=== PATIENT | male | born 1970 | race Caucasian/White ===

== ENCOUNTER 2022-03-25 13:34 | Emergency (ER) | payer SELFPAY ==
[2022-03-25 13:35] VITALS: BP 168/104; PULSE 105; RESP 16; TEMP 36.1; O2SAT 98; BMI 29.8
[2022-03-25 13:53] LABS: Bacteria 0 SEEN /hpf (None Seen); Mucous, Urine 0 SEEN /hpf (<or=2+); Red Blood Cells-Urine 0 SEEN /hpf (0-5)
[2022-03-25 13:55] LABS: Color, Urine Yellow (Yellow); Glucose, Dipstick Normal (Normal); Ketone-Dipstick 15 mg/dl (Negative); Leukocyte Esterase-Dipstick 25 /ul (Negative); Nitrite-Dipstick Negative (Negative); Occult Blood-Urine Negative /ul (Negative); Protein-Dipstick 30 mg/dl (Negative); Urine Bilirubin Dipstick Negative (Negative); Urine Clarity Sl. Cloudy (Clear); Urine Urobilinogen Normal (Normal)
[2022-03-25 13:59] LABS: Absolute Lymphocyte Count 1.65 X10^3/uL (0.83-4.51); Absolute Neutrophil Count 5.9 X10^3/uL (2.0-7.7); Basophil# 0.07 X10^3/uL; Basophil% 0.8 % (0-1); Eosinophil# 0.69 X10^3/uL; Eosinophils% 7.7 % (0-5); Hemoglobin 15.8 g/dL (13.0-16.5); Lymphocyte # 1.65 X10^3/ul (0.83-4.51); Lymphocyte % 18.5 % (19-41); Mean Corp Hgb Conc 33.6 g/dL (32-36); Mean Corpuscular Hgb 28.6 pg (27.0-32.0); Mean Corpuscular Volume 85.1 fL (80-94); Mean Platelet Vol. 9.9 fl (6.2-12.0); Monocyte# 0.63 X10^3/uL; NRBC Flagged by Analyzer 0 % (0-5); Neutrophil # 5.87 X10^3/uL (2.7-7.7); Neutrophil % 65.7 % (47-70); Platelet Count 306 K/mm3 (150-450); RBC Distribution Width CV 13.7 % (11.6-14.6); Red Blood Count 5.52 M/mm3 (4.6-6.2); White Blood Count 8.9 K/mm3 (4.4-11.0)
[2022-03-25 14:04] LABS: Squamous Epithelial Cells - UA 0-5 SEEN /hpf (0-5); White Blood Cells 0-5 SEEN /hpf (0-5)
[2022-03-25 14:09] LABS: Anion Gap 6 (5-15); BUN 11 mg/dL (7-18); BUN/Creat Ratio 8.7 RATIO (10-20); Calcium,Total 9.5 mg/dL (8.5-10.1); Chloride 108 mmol/L (98-107); Creatinine, Serum 1.26 mg/dL (0.70-1.30); EST Glomerular Filtration Rate 63 mL/min (>60); Est Glom Filt Rate - Afr Amer 77 mL/min (>60); Estimated Creatinine Clearance 70.01 ml/min; Glucose 114 mg/dL (74-106); Potassium 3.6 mmol/L (3.5-5.1); Sodium Level 140 mmol/L (136-145)
[2022-03-25 16:18] VITALS: PULSE 97; RESP 17; O2SAT 96
--- NOTE | 2022-03-25 16:24 | CT_ITS ---
EXAM: CT ABDOMEN AND PELVIS WITH INTRAVENOUS CONTRAST CLINICAL INDICATION: RLQ pain TECHNIQUE: Helically acquired images were obtained of the abdomen and pelvis with intravenous contrast. This CT exam was performed using one or more of the following dose reduction techniques: automated exposure control, adjustment of the mA and/or kV according to patient size, and/or use of iterative reconstruction technique. This report was created using [employer] report generation technology. CONTRAST: IV 100mL Isovue-370 COMPARISON: None. FINDINGS: LOWER THORAX: Unremarkable. Lung bases are clear. No cardiomegaly. No significant pericardial effusion. ABDOMEN: LIVER: Unremarkable. Homogeneous. No focal mass. GALLBLADDER AND BILE DUCTS: Single gallstones present with no inflammation. No gallbladder distention or wall edema. No intra- or extrahepatic biliary ductal dilation. PANCREAS: Unremarkable. No focal cystic or solid mass. SPLEEN: Unremarkable. Normal size without focal cystic or solid mass. ADRENALS: Unremarkable. No nodules. KIDNEYS AND URETERS: Unremarkable. Normal renal size and position. No hydronephrosis. STOMACH AND BOWEL: Unremarkable. No stomach or bowel distention. No focal inflammatory change. PELVIS: APPENDIX: No evidence of acute appendicitis. BLADDER: Unremarkable. REPRODUCTIVE: Unremarkable as visualized. No mass. ABDOMEN and PELVIS: INTRAPERITONEAL SPACE: Unremarkable. No ascites or other fluid collection. No free air. BONES/JOINTS: Unremarkable. No suspicious lytic or blastic abnormality. SOFT TISSUES: Unremarkable. No discrete abdominal or pelvic wall hernia. VASCULATURE: Unremarkable. Abdominal aorta is non-dilated. LYMPH NODES: Unremarkable. No enlarged lymph nodes. CT/Abdomen/Pelvis W IV Cont ONLY IMPRESSION: Cholelithiasis with no evidence of cholecystitis. No other abnormalities identified. Electronically Signed: Connor Pierre MD at 17:17 EDT ,
[2022-03-25] MEDS: 0.9% Normal Saline 1,000 ML 999 ML IV (16:42)
--- NOTE | 2022-03-25 16:52 | ED.VIS.GI ---
HPI HPI - GI History of Present Illness Chief Complaint: Abd Pain Informant: patient Abdominal Pain/Flank Pain Onset: Days (several) Context: Gradual Onset Timing: Continuous Quality: Aching Location: RLQ Current Severity: Moderate Maximum Severity: Moderate Worsened by: Nothing Relieved by: - (Ibuprofen that he took prior to coming here) Nausea/Vomiting/Emesis GI Symptom: Negative for Nausea or Vomiting Diarrhea/Melena/Hematochezia GI Symptom: Negative for Diarrhea, Melena or Hematochezia Associated Symptoms Associated Symptoms: Positive for - (poor appetite today); Negative for Dysuria, Frequency, Hematuria or Urgency Narrative Narrative: Patient presenting with right lower quadrant abdominal pain that has been mild last couple days but today it was noticeably worse and affected his appetite. No radiation of the pain. No urinary symptoms but he is urinating less today because he has not been drinking very much. No fevers or chills. No history of any abdominal surgeries. He takes no medications for any medical problems. PFSH PFSH Medical History no medical history no medical history Home Medications NK 03/25/22 [History Last Taken Unknown] Allergy/AdvReac Type Severity Reaction Status Date / Time No Known Allergies Allergy Verified 03/25/22 13:35 Surgical History no surgical history no surgical history Social History Smoking Status: Former smoker ROS ROS ED Constitutional Constitutional ED: Reports anorexia; Denies chills or fever(s) Eyes Eyes: Denies change in vision or diplopia ENT ENT ED: Reports nasal congestion; Denies rhinorrhea or sore throat Cardiovascular Cardiovascular: Denies chest pain or palpitations Respiratory/Chest Respiratory/Chest: Reports cough; Denies dyspnea Gastrointestinal Gastrointestinal: Reports abdominal pain; Denies diarrhea, nausea or vomiting Genitourinary Genitourinary ED: Denies dysuria or hematuria Musculoskeletal Musculoskeletal: Denies back pain or neck pain Integumentary Denies abscess or rash Neurologic Neurologic: Denies headache(s), paresthesias or weakness Psychiatric Psychiatric: Denies anxiety or suicidal thoughts EXAM Physical Exam Const Vital Signs: 03/25/22 13:35 03/25/22 16:18 Temperature 96.9 F L Temperature Source Temporal Pulse Rate 105 H 97 Respiratory Rate 16 17 Blood Pressure 168/104 H Blood Pressure Mean 125 Pulse Ox 98 96 Oxygen Delivery Method Room Air Room Air Positive well nourished and well developed General Appearance ED: well developed and NAD HEENT Reports moist mucous membranes normocephalic and atraumatic Eyes PERRL and EOMs intact bilaterally Neck full ROM and supple Resp normal respiratory effort and clear to auscultation bilaterally Cardio regular rate, regular rhythm and no murmurs GI non-distended GI Narrative: Tender in and around McBurney's point right lower quadrant, no other areas of abdominal tenderness. Negative Oseguera, Rovsing, psoas, obturator signs. No guarding or rebound tenderness. Auscultation: normoactive bowel sounds Palpation: soft Back/Spine no CVA tenderness General Back: other FROM Extremity normal to inspection General Extremety ED: Negative for edema, pulses abnormal or tenderness General Extremity: Negative for edema or pulses abnormal Neuro oriented x3, CN's II-XII intact bilaterally and no sensory deficits noted Sensorium / Orientation: awake and alert Motor Exam: strength 5/5 throughout Psych mental status grossly normal and thought process normal Skin no rashes or lesions noted and no wounds MDM MDM MDM Narrative Medical decision making narrative: Work-up is only remarkable for gallstones, without any signs of cholecystitis. He is nontender here even on reevaluation. Appendix normal, no signs of appendicitis which is what I was more concerned about with his exam. When I went to reevaluate him he discussed the fact that he has cough and congestion for the last 4 or 5 days. Has not been tested for COVID, so subsequently we ran that test which delayed his visit here in the ED but he was amenable to that. It was negative. Patient is reassured and discharged home advised to use [id number] anti-inflammatories as needed for his pain. I do not think gallstones are causing this pain. Patient was discharged with referral to the next doctor on the unassigned list, Dr. Young. He states he does not have a doctor. Lab Data Attestation: I reviewed the patient's lab results. Labs: Laboratory Results - last 24 hr 03/25/22 03/25/22 03/25/22 13:40 13:45 13:45 WBC 8.9 RBC 5.52 Hgb 15.8 Hct 47.0 MCV 85.1 MCH 28.6 MCHC 33.6 RDW Std Deviation 43.0 RDW Coeff of Daryn 13.7 Plt Count 306 MPV 9.9 Immature Gran % (Auto) 0.300 Neut % (Auto) 65.7 Lymph % (Auto) 18.5 L Grainger % (Auto) 7.0 Eos % (Auto) 7.7 H Baso % (Auto) 0.8 Absolute Neuts (auto) 5.9 Absolute Lymphs (auto) 1.65 Nucleated RBC % 0 Sodium 140 Potassium 3.6 Chloride 108 H Carbon Dioxide 26.0 Anion Gap 6 BUN 11 Creatinine 1.26 Estim Creat Clear Calc 70.01 Est GFR (MDRD) Af Amer 77 Est GFR (MDRD) Non-Af 63 BUN/Creatinine Ratio 8.7 L Glucose 114 H Calcium 9.5 Urine Color Yellow Urine Clarity Sl. Cloudy Urine pH 5.0 Ur Specific [place] 1.020 Urine Protein 30 H Urine Glucose (UA) Normal Urine Ketones 15 H Urine Occult Blood Negative Urine Nitrite Negative Urine Bilirubin Negative Urine Urobilinogen Normal Ur Leukocyte Esterase 25 H Urine RBC 0 SEEN Urine WBC 0-5 SEEN Ur Squamous Epith Cells 0-5 SEEN Urine Bacteria 0 SEEN Urine Mucus 0 SEEN Radiography Diagnostic Testing: Clinical Impression(s) from Imaging Studies Abdomen/Pelvis CT 03/25/22 16:24 IMPRESSION: Cholelithiasis with no evidence of cholecystitis. No other abnormalities identified. Electronically Signed: Connor Pierre MD at 17:17 EDT , Discharge Plan Triage Chief Complaint: Abd Pain ED Provider: Raymond Bob Dx/Rx/DC Orders Clinical Impression: Abdominal pain, acute, right lower quadrant, Cholelithiasis, Viral URI with cough Instructions: Gallstones Dc, ED URI, Viral, No Abx (Adult) Prescriptions: No Action NK Primary Care Provider: Care Physician,No Primary Referrals: Sissy Young MD [Med Staff - Personnel Specialist] - 1 Week if not improving Care Physician,No Primary [Primary Care Provider] - Disposition Disposition: Home, Self Care
--- NOTE | 2022-03-25 17:49 | CM.ED ---
Social Work Consult: No PCP/no insurance Referral source: Self referral due to above This social scientist met with patient in room. Introduced self and social scientist role. Patient agreeable to speak with this social scientist, patient currently reading Salomón Guardado when this social scientist entered the room. This social scientist broached conversation about patient not having medical insurance. Patient confirms to have no medical insurance. This social scientist inquired if patient has applied to medicaid, patient states no. This social scientist inquired if patient would be agreeable to this social scientist compiling some resources for patient to assist with patient obtaining medical insurance and then to be able to set up a primary care doctor. Patient respectfully states no, I don't need anything. Patient denies housing concerns or transportation concerns. Patient denies concerns in the community. This social scientist attempting to speak further about reason for why patient is reluctant to agree to this social scientist providing patient with resources. Patient does not elaborate on answers to questions. Patient pleasant and engaged in conversation and continues to respectfully decline resources/support options. Patient denies any questions or concerns. This social scientist encouraged patient to ask for social scientist if patient changes mind about resources, patient voiced understanding. José Antonio Caro MSW, LINDSEY
[2022-03-25 20:36] VITALS: BP 155/88; PULSE 97; RESP 18
[2022-03-25] MEDS: Ibuprofen 600 MG Tablet PO (21:05)
== END 2022-03-25 21:11 | disposition home or self-care (01) ==
PROVIDERS: Emergency Provider Emergency Medicine; Visit Provider Emergency Medicine
DX: K80.20 Calculus of gallbladder without cholecystitis without obstruction (principal); J06.9 Acute upper respiratory infection, unspecified; Z87.891 Personal history of nicotine dependence
CPT/HCPCS: 74177; 80048; 81001; 85025; 87811; 96360; 96361; 99283; J7030; Q9967

== ENCOUNTER 2023-12-27 17:53 | Emergency (ER) | payer SELFPAY ==
[2023-12-27 17:54] VITALS: BP 162/107; PULSE 78; RESP 16; TEMP 36.6; O2SAT 98; BMI 28.0
--- NOTE | 2023-12-27 18:13 | EKG12_ITS ---
Test Reason : ANXIETY Blood Pressure : / mmHG Vent. Rate : 089 BPM Atrial Rate : 089 BPM P-R Int : 166 ms QRS Dur : 076 ms QT Int : 368 ms P-R-T Axes : 050 -02 050 degrees QTc Int : 447 ms Normal sinus rhythm Normal ECG Confirmed by BAYLEE MIR, KAMLESH ([id number]), primer expeditor and drier KATERINE MAZA ([id number]) on 12/31/2023 9:58:09 AM Referred By: Confirmed By:CARMEN BEACH MD
--- NOTE | 2023-12-27 18:38 | ED.RN ---
ISSUE WITH LABELS PRINTING AND LAB SEEING ORDERS. CALLED DOWN TO THE LAB TO UPDATE CURRENT BLOOD SENT. NOTIFYING ONCOMING STAFF TO USE DOWNTIME PAPERWORK FOR LABS UNTIL CORRECTED. IT WORKING ON IT
[2023-12-27 19:17] LABS: Bacteria 0 SEEN /hpf (None Seen); Color, Urine Yellow (Yellow); Glucose, Dipstick Normal (Normal); Ketone-Dipstick Negative (Negative); Leukocyte Esterase-Dipstick Negative /ul (Negative); Mucous, Urine 0 SEEN /hpf (<or=2+); Nitrite-Dipstick Negative (Negative); Occult Blood-Urine Negative /ul (Negative); Protein-Dipstick Negative (Negative); Red Blood Cells-Urine 0 SEEN /hpf (0-5); Specific Gravity, Urine 1.005 (1.002-1.030); Squamous Epithelial Cells - UA 0 SEEN /hpf (0-5); Urine Bilirubin Dipstick Negative (Negative); Urine Clarity Clear (Clear); Urine Urobilinogen Normal (Normal); White Blood Cells 0 SEEN /hpf (0-5)
[2023-12-27 19:30] LABS: Anion Gap 6 (5-15); BUN 11 mg/dL (7-18); BUN/Creat Ratio 8.9 RATIO (10-20); Calcium,Total 9.4 mg/dL (8.5-10.1); Chloride 108 mmol/L (98-107); Creatinine, Serum 1.24 mg/dL (0.70-1.30); EST Glomerular Filtration Rate 64 mL/min (>60); Est Glom Filt Rate - Afr Amer 78 mL/min (>60); Estimated Creatinine Clearance 75.47 ml/min; Glucose 114 mg/dL (74-106); Potassium 4.1 mmol/L (3.5-5.1); Sodium Level 139 mmol/L (136-145)
--- NOTE | 2023-12-27 19:37 | EDS_ITS ---
HPI History of Present Illness Chief Complaint: Anxiety Detail of Chief Complaint: Anxiousness at 1500, elevated blood pressure 1700 Informant: patient Onset/Context/Timing Onset: Today Context: Sudden Onset Timing: Continuous Quality: Feeling anxious Location: Generalized Current Severity: Mild Maximum Severity: Mild Worsened by: Nothing Relieved by: Nothing Associated Symptoms Associated Symptoms: No symptoms Narrative Narrative: Patient is a 53-year-old male has not seen a physician in some time. He felt anxious at 1500. His sister had a blood pressure device recommended checking his blood pressure at 1700. His blood pressure was elevated. Systolic was greater than 200. He states he had no symptoms. Patient denies headache, double vision, blurred vision loss of vision. Patient denies ringing in ears or decreased hearing. Patient denies trouble with speech or swallowing. Patient denies chest discomfort or back pain. Patient denies shortness of breath or difficulty breathing. Patient denies paresthesia, anesthesia or motor weakness upper or lower extremity. Patient denies problems with balance or coordination. Patient denies history of heart problems or kidney problems to his knowledge. He is presently on no medication. Prior similar symptoms: No Recent Illness/Hospitalization: No PFSH PFSH Medical History no medical history no medical history Home Medications ?Medication ?Instructions ?Recorded ?Last Taken ?Type hydrochlorothiazide 12.5 mg tablet 12.5 mg PO DAILY #30 tabs 12/27/23 Unknown Rx Allergy/AdvReac Type Severity Reaction Status Date / Time No Known Allergies Allergy Verified 12/27/23 18:29 Surgical History no surgical history no surgical history Social History Smoking Status: Current some day smoker tobacco type: cigarettes ROS ROS ED Constitutional Constitutional ED: Denies chills, fever(s), subjective, sweats or weight loss Eyes Eyes: Denies blurry vision, change in vision or diplopia ENT ENT ED: Denies ear pain, rhinorrhea or sore throat Cardiovascular Cardiovascular: Denies chest pain, orthopnea, palpitations, paroxysmal nocturnal dyspnea or racing heartbeat Respiratory/Chest Respiratory/Chest: Denies cough, dyspnea, dyspnea on exertion, orthopnea or paroxysmal nocturnal dyspnea Gastrointestinal Gastrointestinal: Denies abdominal pain, constipation, diarrhea, melena, nausea or vomiting Genitourinary Genitourinary ED: Denies dysuria, LMP (females 10-50) or urinary frequency Musculoskeletal Musculoskeletal: Denies arthralgias, back pain, myalgias or neck pain Integumentary Denies Abrasions or rash Neurologic Neurologic: Denies headache(s), paresthesias or weakness Psychiatric Psychiatric: Reports anxiety; Denies depression or suicidal ideation Endocrine Endocrinology: Denies cold intolerance or heat intolerance Hematologic/Lymphatic Hematologic/Lymphatic: Reports systems reviewed and no addt'l complaints, except as documented EXAM Physical Exam Const Vital Signs: 12/27/23 17:54 12/27/23 18:26 Temperature 98 F Temperature Source Temporal Pulse Rate 78 Respiratory Rate 16 Respiratory Effort Normal Respiratory Pattern Normal Blood Pressure 162/107 H Blood Pressure Mean 125 Pulse Ox 98 Oxygen Delivery Method Room Air Positive well nourished and well developed General Appearance ED: well developed, NAD and pallor; Negative for cyanotic or diaphoretic HEENT Reports moist mucous membranes HEENT Narrative: Head is atraumatic and normocephalic. Ears are normal. TMs are normal. Nares patent. Uvula midline. No deviation with protrusion. Eyes PERRL and EOMs intact bilaterally Eyes Narrative: There is no nystagmus. General Eye ED: Negative for pale conjunctiva or scleral icterus Neck no lymphadenopathy, supple and no JVD Neck Narrative: There are no carotid bruits. Chest Wall inspection of chest normal and palpation of chest normal Resp normal respiratory effort and clear to auscultation bilaterally Cardio regular rate, regular rhythm, S1 normal heart sound and S2 normal heart sound GI normal to inspection, nondistended, normoactive bowel sounds, non-tender, non- distended and no masses; Negative for hepatosplenomegaly Back/Spine no CVA tenderness Cervical Spine: Negative for cervical spine tenderness Thoracic Spine / Upper Back: Negative for thoracic spinal tenderness Lumbar Spine / Lower Back: Negative for lumbar spinal tenderness Extremity normal to inspection General Extremety ED: Negative for edema or tenderness General Extremity: Negative for edema Neuro oriented x3, CN's II-XII intact bilaterally and no sensory deficits noted Neuro Narrative: There is no dysmetria. There is no clonus at the ankles. No Babinski sign noted. Sensorium / Orientation: alert Motor Exam: strength 5/5 throughout Psych mental status grossly normal Skin no rashes or lesions noted, no wounds and skin turgor normal General Skin Exam: pallor; Negative for elasticity normal or jaundice MDM MDM MDM Narrative Medical decision making narrative: Patient with elevated blood pressure. Since he has not seen a physician will obtain BMP to assess renal function and UA to assess for proteinuria and hematuria as well as EKG to assess for LVH. Since patient is asymptomatic he was not given any blood pressure for emergent treatment. Lab Data Attestation: I reviewed the patient's lab results. Lab results narrative: Basic metabolic panel is unremarkable. Chloride is slightly evaded 108. Glucose slightly by 114 with normal CO2 anion gap. BUN and creatinine are 11 and 1.24 with an estimated GFR 64. Urine is negative for proteinuria or hematuria. Labs: Laboratory Results - last 24 hr 12/27/23 12/27/23 18:31 18:55 Sodium 139 Potassium 4.1 Chloride 108 H Carbon Dioxide 25.0 Anion Gap 6 BUN 11 Creatinine 1.24 Estim Creat Clear Calc 75.47 Est GFR (MDRD) Af Amer 78 Est GFR (MDRD) Non-Af 64 BUN/Creatinine Ratio 8.9 L Glucose 114 H Calcium 9.4 Urine Color Yellow Urine Clarity Clear Urine pH 7.0 Ur Specific [place] 1.005 Urine Protein Negative Urine Glucose (UA) Normal Urine Ketones Negative Urine Occult Blood Negative Urine Nitrite Negative Urine Bilirubin Negative Urine Urobilinogen Normal Ur Leukocyte Esterase Negative Urine RBC 0 SEEN Urine WBC 0 SEEN Ur Squamous Epith Cells 0 SEEN Urine Bacteria 0 SEEN Urine Mucus 0 SEEN EKG Initial EKG: Attestation: I personally reviewed and interpreted this EKG as follows: Interpretation: Sinus Rhythm (Rate is 89 and the EKG is normal. NM interval is 166 ms per cures duration 76 ms. QT is 368 ms. [place] is normal.) Discharge Plan Triage Chief Complaint: Anxiety Other Complaint: Hypertension ED Provider: Bernard Falk Dx/Rx/DC Orders Clinical Impression: Hypertension, Acute anxiety Instructions: ED Anxiety Reaction, ED Hypertension New Begin Treatment Prescriptions: New hydrochlorothiazide 12.5 mg tablet 12.5 mg PO DAILY Qty: 30 0RF Primary Care Provider: Care Physician,No Primary Referrals: Gregoria Covarrubias [Non-Staff] - 1-2 Weeks Care Physician,No Primary [Primary Care Provider] - Activity Restrictions/Additional Instructions: [facility] for appointment to be seen in 1 to 2 weeks for b lood pressure recheck Print Language: Turkmen Disposition Disposition: Home, Self Care
[2023-12-27 20:03] VITALS: BP 158/96; PULSE 76; RESP 16; O2SAT 98
== END 2023-12-27 20:04 | disposition home or self-care (01) ==
PROVIDERS: Emergency Provider Emergency Medicine; Visit Provider Emergency Medicine
DX: F41.9 Anxiety disorder, unspecified (principal); F17.210 Nicotine dependence, cigarettes, uncomplicated; I10 Essential (primary) hypertension; Z79.899 Other long term (current) drug therapy
CPT/HCPCS: 80048; 81001; 93005; 99284; A4216

== ENCOUNTER 2023-12-30 13:44 | Emergency (ER) | payer SELFPAY ==
[2023-12-30 13:44] VITALS: BP 131/106; PULSE 132; RESP 16; TEMP 36.4; O2SAT 99; BMI 26.9
--- NOTE | 2023-12-30 14:17 | EKG12_ITS ---
Test Reason : CHEST PAIN Blood Pressure : / mmHG Vent. Rate : 113 BPM Atrial Rate : 113 BPM P-R Int : 164 ms QRS Dur : 072 ms QT Int : 330 ms P-R-T Axes : 055 -02 044 degrees QTc Int : 452 ms Sinus tachycardia Possible Left atrial enlargement Nonspecific ST abnormality Abnormal ECG Confirmed by YUVAL MIR, HUGO ([id number]), editor department KATERINE MAZA ([id number]) on 12/31/2023 9:29:31 AM Referred By: TB Confirmed By:HUGO BARAKAT MD
[2023-12-30 14:28] LABS: Absolute Lymphocyte Count 1.62 X10^3/uL (0.83-4.51); Basophil# 0.07 X10^3/uL; Eosinophil# 0.68 X10^3/uL; Eosinophils% 9.4 % (0-5); Hematocrit 51.7 % (40-54); Hemoglobin 17.4 g/dL (13.0-16.5); Lymphocyte # 1.62 X10^3/ul (0.83-4.51); Lymphocyte % 22.3 % (19-41); Mean Corp Hgb Conc 33.7 g/dL (32-36); Mean Corpuscular Hgb 28.3 pg (27.0-32.0); Mean Corpuscular Volume 84.1 fL (80-94); Mean Platelet Vol. 9.9 fl (6.2-12.0); Monocyte# 0.85 X10^3/uL; Monocyte% 11.7 % (0-10); NRBC Flagged by Analyzer 0 % (0-5); Neutrophil # 4.02 X10^3/uL (2.7-7.7); Neutrophil % 55.3 % (47-70); Platelet Count 347 K/mm3 (150-450); RBC Distribution Width CV 13.4 % (11.6-14.6); RBC Distribution Width SD 41.2 fl (35.1-43.9); Red Blood Count 6.15 M/mm3 (4.6-6.2); White Blood Count 7.3 K/mm3 (4.4-11.0)
[2023-12-30 14:45] LABS: Anion Gap 8 (5-15); BUN 19 mg/dL (7-18); BUN/Creat Ratio 13.1 RATIO (10-20); Calcium,Total 9.7 mg/dL (8.5-10.1); Chloride 99 mmol/L (98-107); Creatinine, Serum 1.45 mg/dL (0.70-1.30); EST Glomerular Filtration Rate 54 mL/min (>60); Est Glom Filt Rate - Afr Amer 65 mL/min (>60); Estimated Creatinine Clearance 59.43 ml/min; Glucose 122 mg/dL (74-106); Potassium 3.6 mmol/L (3.5-5.1); Sodium Level 134 mmol/L (136-145); Troponin-I HS 5 pg/mL (3.0-78.0)
[2023-12-30 15:44] VITALS: BP 129/95; PULSE 103; RESP 16; O2SAT 99
--- NOTE | 2023-12-30 16:11 | EDS_ITS ---
HPI History of Present Illness Chief Complaint: Chest Pain Detail of Chief Complaint: Chest pain at the junction of the xiphoid process and body of the sternum. Informant: patient Onset/Context/Timing Onset: Days Activity at onset: sudden and rest Timing: Intermittent Quality: Positive for Aching Location: - (Near the xiphoid process) Current Severity: Mild Maximum Severity: Moderate Worsened By: Nothing Relieved By: Nothing Associated Symptoms: Negative for Nausea, Vomiting, Diaphoresis, Dyspnea, Cough, Fever, Lightheadedness, Acid Reflux or Palpitations Narrative Narrative: Patient is a 53-year-old male seen on December 26 by me and started on antihypertensive medication. He presents now because of pain at the junction of the manubrium and xiphoid process. Nothing specifically makes it worse. Possibly palpation. He denies any associated symptoms. He denies radiation of the pain. He denies dyspnea, dyspnea on exertion, orthopnea or PND. He denies heartburn. Denies history of esophagitis, GERD, hiatal hernia. He denies black or cool. He has no history of VTE. He denies leg pain, swelling discoloration. He denies recent viral-like symptoms. He does have a history of anxiety. Prior Similar Symptoms: No Recent Illness/Hospitalization: Yes (December 26 for anxiety and hypertension) CVD Risk Factors: Positive for Hypertension; Negative for Diabetes, Hypercholesterolemia or Family History 1' </=55 PE Risk Factors: Negative for Recent Travel/Surgery, Recent Immobilization, Prior DVT or PE or OCP + Smoking + >/=35 TAD Risk Factors: Positive for Hypertension; Negative for Marfan's Syndrome or Family History PFSH PFSH Medical History no medical history Home Medications ?Medication ?Instructions ?Recorded ?Last Taken ?Type hydrochlorothiazide 12.5 mg tablet 12.5 mg PO DAILY #30 tabs 12/27/23 Unknown Rx Allergy/AdvReac Type Severity Reaction Status Date / Time No Known Allergies Allergy Verified 12/27/23 18:29 Social History Smoking Status: Current some day smoker tobacco type: cigarettes ROS ROS ED Constitutional Constitutional ED: Denies chills, fever(s), subjective, sweats or weight loss Eyes Eyes: Reports none; Denies blurry vision or change in vision ENT ENT ED: Denies ear pain, rhinorrhea or sore throat Cardiovascular Cardiovascular: Reports as per HPI; Denies orthopnea or paroxysmal nocturnal dyspnea Respiratory/Chest Respiratory/Chest: Denies cough, dyspnea, dyspnea on exertion, orthopnea, paroxysmal nocturnal dyspnea or sputum Gastrointestinal Gastrointestinal: Denies abdominal pain, melena, nausea or vomiting Genitourinary Genitourinary ED: Denies dysuria, hematuria or urinary frequency Musculoskeletal Musculoskeletal: Denies back pain or neck pain Integumentary Denies rash Neurologic Neurologic: Denies paresthesias or weakness Psychiatric Psychiatric: Reports anxiety Hematologic/Lymphatic Hematologic/Lymphatic: Denies easy bleeding or easy bruising EXAM Physical Exam Const Vital Signs: 12/30/23 13:44 12/30/23 13:56 12/30/23 15:44 Temperature 97.6 F L Temperature Source Temporal Pulse Rate 132 H 103 H Respiratory Rate 16 16 Respiratory Effort Normal Respiratory Pattern Bradypnea Blood Pressure 131/106 H 129/95 H Blood Pressure Mean 114 106 Pulse Ox 99 99 Oxygen Delivery Method Room Air Room Air Positive well nourished, well developed and unkempt General Appearance ED: unkempt, well developed and NAD; Negative for pallor HEENT Reports TM's clear and moist mucous membranes HEENT Narrative: Patient has poor dentition. normocephalic and atraumatic Tympanic Membrane ED: Yes TM's clear Eyes PERRL and EOMs intact bilaterally General Eye ED: Negative for pale conjunctiva or scleral icterus Neck no lymphadenopathy, supple and no JVD Chest Wall inspection of chest normal and palpation of chest normal Chest Narrative: There is mild discomfort over the xiphoid process. There is no pain ovation over the intercostal spaces left or right. Resp normal respiratory effort and clear to auscultation bilaterally Cardio regular rhythm, S1 normal heart sound, S2 normal heart sound and no murmurs Rate: tachycardic Peripheral Pulses: pulses 2+ throughout GI normal to inspection, nondistended, normoactive bowel sounds, soft to palpation, non-tender, non-distended and no masses; Negative for hepatosplenomegaly Back/Spine no CVA tenderness and no thoracic nor lumbar tenderness Extremity normal to inspection Neuro oriented x3, CN's II-XII intact bilaterally, no sensory deficits noted and gait normal Sensorium / Orientation: awake and alert Motor Exam: strength 5/5 throughout Psych Appearance: unkempt Mood & Affect: anxious Skin no rashes or lesions noted and no wounds General Skin Exam: Negative for jaundice or pallor MDM MDM MDM Narrative Medical decision making narrative: Differential diagnosis is cardiac versus noncardiac, suspect patient's tachycardia is due to the fact that he is anxious. EKG was obtained. Was obtained which included troponin. CBC to rule out anemia. Electrolyte panel to rule out kidney dysfunction. Lab Data Attestation: I reviewed the patient's lab results. Lab results narrative: CBC is unremarkable. Basic metabolic panel reveals an elevated creatinine of 1.45 with an estimated GFR 54. Glucose slightly elevated 122 with a normal CO2 anion gap. Troponin is normal.Creatinine is slightly elevated. Creatinine was 1.24. Today is 1.45. Patient is hemoconcentrated from prior. Suspect his elevated creatinine is due to the fact that he is mildly dehydrated. Labs: Laboratory Results - last 24 hr 12/30/23 13:55 WBC 7.3 RBC 6.15 Hgb 17.4 H Hct 51.7 MCV 84.1 MCH 28.3 MCHC 33.7 RDW Std Deviation 41.2 RDW Coeff of Daryn 13.4 Plt Count 347 MPV 9.9 Immature Gran % (Auto) 0.300 Neut % (Auto) 55.3 Lymph % (Auto) 22.3 Greer % (Auto) 11.7 H Eos % (Auto) 9.4 H Baso % (Auto) 1.0 Absolute Neuts (auto) 4.0 Absolute Lymphs (auto) 1.62 Nucleated RBC % 0 Sodium 134 L Potassium 3.6 Chloride 99 Carbon Dioxide 27.0 Anion Gap 8 BUN 19 H Creatinine 1.45 H Estim Creat Clear Calc 59.43 Est GFR (MDRD) Af Amer 65 Est GFR (MDRD) Non-Af 54 L BUN/Creatinine Ratio 13.1 Glucose 122 H Calcium 9.7 Troponin I High Sens 5 Discharge Plan Triage Chief Complaint: Chest Pain ED Provider: Bernard Falk Dx/Rx/DC Orders Clinical Impression: Non-cardiac chest pain, Hypertension, Acute anxiety, Elevated serum creatinine, Sinus tachycardia, Dehydration Instructions: ED Chest Pain, Noncardiac, ED Renal Insufficiency Prescriptions: No Action hydrochlorothiazide 12.5 mg tablet 12.5 mg PO DAILY Qty: 30 0RF Primary Care Provider: Care Physician,No Primary Referrals: Gregoria Covarrubias [Non-Staff] - 3-5 Days Care Physician,No Primary [Primary Care Provider] - Activity Restrictions/Additional Instructions: Called the [facility] for repeat blood work in 3 to 5 days to assess your kidney function. Recommend increasing your fluid intake. Print Language: Sen[place]alese Disposition Disposition: Home, Self Care
[2023-12-30 16:22] VITALS: BP 127/57; PULSE 72; RESP 18; TEMP 36.6; O2SAT 99
== END 2023-12-30 16:29 | disposition home or self-care (01) ==
PROVIDERS: Emergency Provider Emergency Medicine; Visit Provider Emergency Medicine
DX: R07.89 Other chest pain (principal); E86.0 Dehydration; I10 Essential (primary) hypertension; F41.9 Anxiety disorder, unspecified; F17.210 Nicotine dependence, cigarettes, uncomplicated; R79.89 Other specified abnormal findings of blood chemistry; Z79.899 Other long term (current) drug therapy
CPT/HCPCS: 80048; 84484; 85025; 93005; 99283; A4216